=== PATIENT | female | born 1985 | race Caucasian/White ===

== ENCOUNTER 2022-10-12 07:12 | Outpatient (CLI) | payer BC, SELFPAY ==
--- NOTE | ~2022-10-12 | XR_ITS ---
EXAMINATION: XR lumbar spine 2-3V DATE: 10/12/2022 07:31 INDICATION: Low back pain, unspecified. TECHNIQUE: 3 views of lumbar spine were obtained. COMPARISON: Lumbar spine radiographs 01/19/2016, MRI 03/16/2016 FINDINGS: Bone alignment is normal. Vertebral body heights are normal. There is mildly decreased disc height at L3-L4 and L4-L5. 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 IMPRESSION: 1. Mild lumbar spondylosis. Reviewed, dictated and finalized at location A. [employer] IMPRESSION: 1. Mild lumbar spondylosis.
== END 2022-10-12 07:13 ==
LOC: MICIMG 07:14
PROVIDERS: PCP Family Medicine; Visit Provider Physician Assistant
DX: M47.896 Other spondylosis, lumbar region (principal)
CPT/HCPCS: 72100

== ENCOUNTER 2022-11-16 07:09 | Outpatient (CLI) | payer SELFPAY ==
--- NOTE | ~2022-11-16 | MR_ITS ---
MRI of the lumbar spine Clinical History: Back pain Technique: Axial T2-weighted images, and sagittal T1-weighted, T2-weighted, and T2 fat-sat images wer e acquired. COMPARISON: 03/16/2016 Findings: There is no fracture or subluxation of the lumbar spine. Visualized maintain normal height and alignment. There are reactive marrow signal changes due to degenerative disc disease, predominant ly about the L4-L5 disc space. At L1-L2, there is no disc bulge or herniation. No spinal canal stenos is or neural foraminal narrowing. At L2-L3, there is no disc bulge or herniation. There is minimal facet joint hypertrophy. No spinal c anal stenosis or neural foraminal narrowing. At L3-L4, there is mild degenerative disc narrowing and minimal facet arthropathy. No spinal canal st enosis or neural foraminal narrowing. At L4-L5, there is mild diffuse disc bulge with mild facet arthropathy. No spinal canal stenosis or n eural foraminal narrowing. At L5-S1, there is minimal disc bulge. Facet arthropathy is present. There is no spinal canal stenosi s or neural foraminal narrowing. Paravertebral soft tissues are unremarkable. Impression: Mild degenerative spondylitic changes, as above. Reviewed, dictated and finalized at location . Impression: Mild degenerative spondylitic changes, as above.
== END 2022-11-16 07:10 ==
PROVIDERS: PCP Family Medicine; Visit Provider Physician Assistant
DX: M47.896 Other spondylosis, lumbar region (principal)
CPT/HCPCS: 72148

== ENCOUNTER 2025-07-18 15:47 | Outpatient (CLI) | payer BC, SELFPAY ==
--- NOTE | ~2025-07-18 | MM_ITS ---
EXAMINATION: MM screening dom BI w bob HISTORY: Screening TECHNIQUE: Craniocaudal and mediolateral oblique 3-D tomosynthesis images were obtained and synthetic 2-D images were generated. CAD analysis was submitted and interpreted. COMPARISON: No prior mammogram is available for comparison at this institution. BREAST PARENCHYMAL COMPOSITION: Not dense: There are scattered areas of fibroglandular density. FINDINGS: There is no evidence of suspicious mass, calcification, or architectural distortion to suggest malignancy in either breast. There has been no suspicious interval change. IMPRESSION: 1. No mammographic evidence of malignancy. 2. Recommend routine screening mammography in one year. BI-RADS Category 1: Negative Reviewed, dictated and finalized at location B. ND VP HR ASSESSMENT
== END 2025-07-18 15:48 | disposition home or self-care (01) ==
LOC: MICIMG 15:47
PROVIDERS: PCP Family Medicine; Visit Provider Obstetrics & Gynecology
DX: Z12.31 Encounter for screening mammogram for malignant neoplasm of breast (principal)
CPT/HCPCS: 77063; 77067